=== PATIENT | male | born 1970 | race Caucasian/White ===

== ENCOUNTER 2018-09-28 15:50 | Inpatient (IN) | payer BC ==
[~2018-09-28] VITALS: Ht 188 cm; Wt 98.6 kg
--- NOTE | ~2018-09-28 | OP ---
PATIENT NAME: IZZY ESTRELLA MEDICAL RECORD: [id number] :68 LOCATION:[id number] ADMISSION DATE:09/28/18 SURGEON: MAICO FRAZIER MD DATE OF OPERATION: 09/29/2018 PREOPERATIVE DIAGNOSES: 1. Acute appendicitis with localized peritonitis. 2. Umbilical hernia. 3. Lupus. POSTOPERATIVE DIAGNOSES: 1. Acute appendicitis with localized peritonitis. 2. Umbilical hernia. 3. Lupus. PROCEDURE: 1. Laparoscopic appendectomy. 2. Umbilical hernia repair without mesh. SURGEON: Maico Frazier MD REPORT OF PROCEDURE: The patient's abdomen was prepped and draped in sterile fashion. A semicircular incision was made on the inferior aspect of the umbilicus. Electrocautery was used to dissect through the subcutaneous tissues. We came through the umbilical stalk and opened up into a fat-containing umbilical hernia. The hernia defect was about 1.5 cm in greatest diameter. This was penetrated bluntly and I entered the abdominal cavity. A 0 Vicryls were placed on the fascia bilaterally and at this point a 12-mm trocar was inserted into the abdominal cavity. After insufflation was obtained, then a 5-mm trocar was placed in the left lower quadrant and another was placed in the suprapubic region. The appendix was easily visualized. It was noted to be inflamed with no signs of gangrene or perforation. The appendix was attached to the lateral wall with a small film, which was taken down using electrocautery. We then made a window at the base of the appendix through the mesoappendix and transected the mesoappendix with a 45 white load Endo-CASTRO stapler. The appendix was then transected at its base using a 45 blue load Endo-CASTRO stapler. The appendix was placed into an Endo Catch bag. We irrigated out the right lower quadrant and could see there was an area of bleeding at the staple line, which was discontinued with electrocautery. At this point, the ports and insufflation were then removed and the appendix was taken out through the umbilicus. The umbilical fascia was closed with interrupted 0 Prolenes times 4 transversely. The umbilicus was then tacked down to the fascia using a single interrupted 3-0 Vicryl. The subcutaneous tissues were all irrigated out and then infused with 10 mL of 0.25% Marcaine with epinephrine. The skin incisions were closed with subcutaneous 5-0 Monocryl and dressed appropriately. COMPLICATIONS: None. CONDITION: Stable. ANESTHESIA: General endotracheal and local. BLOOD LOSS: Minimal. TRANSINT:[id number] Voice Confirmation ID: [id number] DOCUMENT ID: [id number] OPERATIVE REPORT [id number] SAMEER,MAICO KIRKPATRICK MD CC: [id number] DICTATION DATE: 09/29/18 1254 CHOKE SETTER: 09/29/18 1425 ADM IN [place] [id number] [place] [id number]
[2018-09-28 17:03] LABS: BASOPHILS 0.4 % (0-2); EOSINOPHILS 3.3 % (0-7); HEMATOCRIT 35.2 % (42.0-54.0); HEMOGLOBIN 10.8 g/dL (13.5-17.5); IMMATURE GRANULOCYTES 0.1 % (0-5); LYMPHOCYTES 22.3 % (15-50); MCH 24.5 pg (26.0-34.0); MCHC 30.7 g/dL (31.0-37.0); MCV 79.8 fL (80.0-100.0); MEAN PLATELET VOLUME 9.5 fL (7.4-10.4); MONOCYTES 9.7 % (2-11); NEUTROPHILS 64.2 % (40-80); PLATELET COUNT 398 10x3/uL (130-400); RBC 4.41 10x6/uL (4.20-6.10); RDW 16.4 % (11.5-14.5); WBC 7.6 10x3/uL (4.8-10.8)
[2018-09-28 17:18] LABS: ALBUMIN 3.1 g/dL (3.4-5.0); ALKALINE PHOSPHATASE 106 U/L (46-116); ALT (SGPT) 20 U/L (10-68); AMYLASE - SERUM 70 U/L (25-115); BILIRUBIN - TOTAL 0.21 mg/dL (0.2-1.3); CALC OSMOLALITY 277 mosm/kg (275-300); CALCIUM 8.9 mg/dL (8.5-10.1); CHLORIDE - SERUM 102 mmol/L (98-107); GLUCOSE 92 mg/dL (74-106); LIPASE 162 U/L (73-393); POTASSIUM - SERUM 4.2 mmol/L (3.5-5.1); PROTEIN - SERUM 8.7 g/dL (6.4-8.2); SODIUM 139 mmol/L (136-145); UREA NITROGEN 13 mg/dL (7-18); eGFR NON AFRICAN AMERICAN 84 mL/min (90-120)
[2018-09-28 17:38] LABS: APPEARANCE CLEAR (CLEAR); BILIRUBIN NEGATIVE (NEGATIVE); COLOR YELLOW (YELLOW); GLUCOSE NEGATIVE (NEGATIVE); KETONE SMALL mg/dL (NEGATIVE); NITRITE NEGATIVE (NEGATIVE); PROTEIN TRACE mg/dL (NEGATIVE); SPECIFIC GRAVITY 1.015 (1.005-1.020); UROBILINOGEN NORMAL (NORMAL)
--- NOTE | 2018-09-28 22:22 | NUR ---
PT'S IV ANTIBIOTIC MERREM FINISHED.
--- NOTE | 2018-09-28 23:00 | NUR ---
RECEIVED TO FLOOR FROM ER, ORIENTED TO ROOM, DENIES NEEDS, IV TO RAC NS @125, CALL LIGHT IN REACH, BED LOWEST POSITION, WILL CONTINUE TO MONITOR
[2018-09-28 23:47] VITALS: BP 148/82; BMI 27.9
[2018-09-29] VITALS: BP 148/82
[2018-09-29 04:00] VITALS: BP 138/84
[2018-09-29 07:05] LABS: INR 1.07 (0.85-1.17); PROTIME 13.4 SECONDS (11.6-15.0)
[2018-09-29 07:16] LABS: BASOPHILS 0.3 % (0-2); EOSINOPHILS 3.7 % (0-7); HEMATOCRIT 34.2 % (42.0-54.0); HEMOGLOBIN 10.5 g/dL (13.5-17.5); IMMATURE GRANULOCYTES 0.2 % (0-5); LYMPHOCYTES 28.3 % (15-50); MCH 24.5 pg (26.0-34.0); MCHC 30.7 g/dL (31.0-37.0); MCV 79.9 fL (80.0-100.0); MEAN PLATELET VOLUME 10.4 fL (7.4-10.4); MONOCYTES 11.7 % (2-11); NEUTROPHILS 55.8 % (40-80); PLATELET COUNT 377 10x3/uL (130-400); RBC 4.28 10x6/uL (4.20-6.10); RDW 16.6 % (11.5-14.5); WBC 6.2 10x3/uL (4.8-10.8)
[2018-09-29 07:25] LABS: CALC OSMOLALITY 274 mosm/kg (275-300); CALCIUM 8.4 mg/dL (8.5-10.1); CARBON DIOXIDE 25.4 mmol/L (21.0-32.0); CHLORIDE - SERUM 102 mmol/L (98-107); GLUCOSE 79 mg/dL (74-106); PHOSPHOROUS 3.1 mg/dL (2.5-4.9); POTASSIUM - SERUM 3.6 mmol/L (3.5-5.1); SODIUM 138 mmol/L (136-145); UREA NITROGEN 12 mg/dL (7-18); eGFR NON AFRICAN AMERICAN 84 mL/min (90-120)
[2018-09-29 09:02] VITALS: Ht 188 cm; Wt 98.6 kg
[2018-09-29 09:37] VITALS: BP 139/82
--- NOTE | 2018-09-29 10:19 | NUR ---
ALERT AND ORIENTED WITH CONSENT SIGNED AND PREOP MEDICATIONS ADMINISTERED. BS NOTED WOTH RLQ TENDERNESS ON PALPATION. IVF INFUSING AT PRESCRIBED RATE. DENEIS ANY PAIN OR DISCOMFORT AT TIS TIME AND ENCOURAGED TO USE CALL LIGHT FOR ASSIST.
--- NOTE | 2018-09-29 11:49 | NUR ---
PT. LEFT FOR PROCEDURE WITH ASSIST OF STAFF. STABLE AT TIME OF DEPARTURE.
[2018-09-29] MEDS ORDERED: HYDROCODON-ACE1 EA10 PO (12:48)
[2018-09-29 13:29] VITALS: BP 130/69
--- NOTE | 2018-09-29 15:14 | NUR ---
DISCHARGED TO HOME VIA POV OF FAMILY. VERBALIZED UNDERWTANDING OF DISCHARGE INSTRUCTIONS WITH S/L REMOVED AND VOIDING PRIOR TO DISCHARGE. AMBULATING WITH GAURDED GAIT WITH NO C/O NOTED AT THIS TIME. STABLE AT TIME OF DISCHARGE.
== END 2018-09-29 15:16 | disposition home or self-care (01) | DRG 343 ==
LOC: D.ER 15:50 → D.EDHOLD 20:45 → D.MS 22:30
PROVIDERS: Family Medicine; ADMIT Surgery; ATTEND Surgery
PROC: 0WQF4ZZ Repair Abdominal Wall, Percutaneous Endoscopic Approach (ICD-10-PCS; 2018-09-29)
PROC: 0DTJ4ZZ Resection of Appendix, Percutaneous Endoscopic Approach (ICD-10-PCS; principal; 2018-09-29 12:24)
DX: K35.30 Acute appendicitis with localized peritonitis, without perforation or gangrene (principal); K42.9 Umbilical hernia without obstruction or gangrene; M32.9 Systemic lupus erythematosus, unspecified

== ENCOUNTER → 2018-12-12 17:49 | Outpatient (CLI) | payer BC ==
[2018-09-29 09:02] VITALS: BMI 27.9
[~2018-12-12 17:49] MED LIST: HYDROCODON-ACE1 EA10 PO
[2018-12-12 19:16] LABS: PROTEIN - BODY FLUID 8.1 G/DL
[2018-12-12 19:44] LABS: MACROPHAGES BF 4 %; MESOTHELIALS BF 1 %; NEUT - BF 91 %
[2018-12-12 19:46] LABS: MACROPHAGES BF 28 %; MESOTHELIALS BF 3 %; NEUT - BF 63 %
== END | disposition home or self-care (01) ==
LOC: D.LABREF 17:49
PROVIDERS: ATTEND Clinical Nurse Specialist Family Health
DX: R22.42 Localized swelling, mass and lump, left lower limb (principal); M25.562 Pain in left knee; M25.561 Pain in right knee

== ENCOUNTER 2019-01-11 03:09 | Emergency (ER) | payer BC ==
[2019-01-11 03:15] VITALS: BMI 27.0
[2019-01-11] MEDS ORDERED: AUGMENTIN 875-11 TAB PO (05:33)
[2019-01-11 05:38] VITALS: BP 135/80
== END 2019-01-11 05:38 | disposition home or self-care (01) ==
LOC: D.ER 03:09
DX: J01.00 Acute maxillary sinusitis, unspecified (principal)

== ENCOUNTER 2019-10-31 17:18 | Emergency (ER) | payer BC ==
[~2019-10-31] VITALS: Ht 188 cm; Wt 100.0 kg
[~2019-10-31 17:18] MED LIST changes: +AUGMENTIN 875-11 TAB PO
[2019-10-31 17:25] VITALS: Ht 188 cm; Wt 100.0 kg
[2019-10-31 17:47] LABS: BASOPHILS 0.6 % (0-2); EOSINOPHILS 2.8 % (0-7); HEMATOCRIT 40.7 % (42.0-54.0); HEMOGLOBIN 13.1 g/dL (13.5-17.5); IMMATURE GRANULOCYTES 0.1 % (0-5); LYMPHOCYTES 29.7 % (15-50); MCH 29.7 pg (26.0-34.0); MCHC 32.2 g/dL (31.0-37.0); MCV 92.3 fL (80.0-100.0); MONOCYTES 12.5 % (2-11); NEUTROPHILS 54.3 % (40-80); RBC 4.41 10x6/uL (4.20-6.10); RDW 13.5 % (11.5-14.5); WBC 6.9 10x3/uL (4.8-10.8)
[2019-10-31 17:48] LABS: PLATELET COUNT 296 10x3/uL (130-400)
[2019-10-31 17:54] LABS: CALC OSMOLALITY 273 mosm/kg (275-300); CALCIUM 8.7 mg/dL (8.5-10.1); CARBON DIOXIDE 24.6 mmol/L (21.0-32.0); CHLORIDE - SERUM 101 mmol/L (98-107); CREATININE - SERUM 1.1 mg/dL (0.6-1.3); GLUCOSE 92 mg/dL (74-106); POTASSIUM - SERUM 3.8 mmol/L (3.5-5.1); SODIUM 136 mmol/L (136-145); UREA NITROGEN 17 mg/dL (7-18); eGFR NON AFRICAN AMERICAN 75 mL/min (90-120)
[2019-10-31 17:56] LABS: INR 0.93 (0.85-1.17); PROTIME 12.4 SECONDS (11.6-15.0)
[2019-10-31 18:10] LABS: ALBUMIN 3.8 g/dL (3.4-5.0); ALKALINE PHOSPHATASE 105 U/L (30-120); ALT (SGPT) 40 U/L (10-68); BILIRUBIN - TOTAL 0.36 mg/dL (0.2-1.3); CKMB 2.2 U/L (0.0-3.6); CREATINE KINASE 313 UL (21-232); MAGNESIUM - SERUM 1.7 mg/dL (1.8-2.4)
[2019-10-31 18:15] LABS: TROPONIN-I < 0.017 ng/mL (0.000-0.060)
[2019-10-31 19:20] VITALS: BP 143/80
== END 2019-10-31 19:18 | disposition home or self-care (01) ==
LOC: D.ER 17:18
PROVIDERS: Family Medicine
DX: R07.89 Other chest pain (principal); F41.9 Anxiety disorder, unspecified

== ENCOUNTER 2020-05-06 14:38 | Emergency (ER) | payer BC ==
[~2020-05-06] VITALS: Ht 188 cm; Wt 95.5 kg
[2020-05-06 15:08] VITALS: BP 126/88; Ht 188 cm; Wt 95.5 kg
[2020-05-06] MEDS ORDERED: COSENTYX (15:11)
== END 2020-05-06 17:29 | disposition home or self-care (01) ==
LOC: D.ER 14:38
DX: K22.2 Esophageal obstruction (principal); R13.10 Dysphagia, unspecified

== ENCOUNTER 2020-10-16 05:43 | Day surgery (SDC) | payer MEDICARE ==
[~2020-10-16] VITALS: Ht 188 cm; Wt 92.7 kg
[~2020-10-16 05:43] MED LIST changes: +COSENTYX; +PROTONIX FOR OR40 MG PT; +ULTRAM50 MG PO; +VALIUM10 MG PO
[2020-10-16 06:56] VITALS: BP 144/80; Ht 188 cm; Wt 92.7 kg
--- NOTE | 2020-10-16 09:48 | NUR ---
PROCEDURE COMPLETED. DILATED 24 TO 60 CITIZEN OF [place] AND [place] DILATION PERFORMED ALSO.
--- NOTE | 2020-10-16 11:11 | NUR ---
IV D/C'D WITH CANNULA INTACT, PRESSURE HELD AND DRSG PLACED. DISCHARGE INSTRUCTIONS GIVEN AND PT VERBALIZED AN UNDERSTANDING.
== END 2020-10-16 10:30 | disposition home or self-care (01) ==
LOC: D.OPS 05:43
PROVIDERS: ATTEND Surgery
DX: K22.2 Esophageal obstruction (principal); K21.9 Gastro-esophageal reflux disease without esophagitis

== ENCOUNTER 2020-11-12 14:43 | Day surgery (SDC) | payer BC ==
[~2020-11-12] VITALS: Ht 188 cm; Wt 95.5 kg
[2020-11-12] MEDS ORDERED: PROTONIX40 MG PO (15:06)
[2020-11-12 15:09] VITALS: Ht 188 cm; Wt 95.5 kg
--- NOTE | 2020-11-12 17:06 | NUR ---
DC INSTRUCTIONS GIVEN TO PT. STATES UNDERSTANDING. DC'D IV CATH FULLY INTACT. WILL DC SHORTLY.
--- NOTE | 2020-11-12 17:12 | NUR ---
PT LEFT UNIT VIA WC AT 1712
== END 2020-11-12 17:12 | disposition home or self-care (01) ==
LOC: D.OPS 14:43
PROVIDERS: ATTEND Surgery
DX: T18.128A Food in esophagus causing other injury, initial encounter (principal); K22.2 Esophageal obstruction; K21.9 Gastro-esophageal reflux disease without esophagitis

== ENCOUNTER 2020-12-24 11:07 | Day surgery (SDC) | payer MEDICARE ==
[~2020-12-24] VITALS: Ht 185.4 cm; Wt 95.5 kg
[~2020-12-24 11:07] MED LIST changes: +PROTONIX40 MG PO
[2020-12-24 12:21] VITALS: BP 129/91; Ht 185.4 cm; Wt 95.5 kg
--- NOTE | 2020-12-24 14:40 | NUR ---
DC TEACHING COMPLETE, PT VERBALIZED UNDERSTANDING 1450 NOTIFIED ANESTHESIA OF PT ELEVATED BP, TOLD TO GIVE PT 10 OF HYDRALAZINE, PT ASKED TO RETAKE HIS BP AFTER UNCROSSING HIS LEGS. BP WAS LOWERED, PT REQUESTED THAT THIS NURSE RE-INFORM ANESTHESIA; THIS WAS DONE AND OK'D TO NOT GIVE THE HYDRALIZINE. 1500 PIV DC'D WITH CATHETER INTACT, PT GETTING DRESSED 1520 PT DC'D TO POV WITH ALL BELONGINGS AND DC PACKET WITH FAMILY/FRIEND DRIVING.
== END 2020-12-24 15:20 | disposition home or self-care (01) ==
LOC: D.OPS 11:07
PROVIDERS: ATTEND Surgery
DX: K22.2 Esophageal obstruction (principal)

== ENCOUNTER 2021-01-07 08:43 | Observation (INO) | payer BC ==
[~2021-01-07] VITALS: Ht 185.4 cm; Wt 95.5 kg
[2021-01-07] MEDS ORDERED: UNISOM SLEEP AI25 MG PO (16:35)
[2021-01-07 16:40] VITALS: BP 136/88; Ht 185.4 cm; Wt 95.5 kg
--- NOTE | 2021-01-07 17:03 | NUR ---
I have reviewed this patient and I concur with the Shift Assessment completed by the Licensed Practical Nurse today this shift.
[2021-01-07 20:00] VITALS: BP 118/84
[2021-01-08] VITALS: BP 139/84
[2021-01-08 04:00] VITALS: BP 117/68
[2021-01-08] MEDS ORDERED: PROTONIX20 MG PO (08:35)
[2021-01-08 08:43] VITALS: BP 147/85
--- NOTE | 2021-01-08 08:50 | NUR ---
RETURN BACK TO FLOOR AT THIS TIME AWAKE AND ALERT. RESP EVEN AND UNLABORED WITH NO DISTRESS NOTED. CAN EXPRESS ALL NEEDS. NO C/O NOTED OR VOICED. C/L IN REACH AT BEDSIDE.
--- NOTE | 2021-01-08 10:46 | NUR ---
DC HOME AT THIS TIME. IV DC. NO C/O NOTED. STABLE CONDITION UPON DEPARTURE.
== END 2021-01-08 10:47 | disposition home or self-care (01) ==
LOC: D.RAD 08:43 → OBSVTIME 16:00 → D.MS 16:00
PROVIDERS: ADMIT Surgery; ATTEND Surgery
DX: K22.2 Esophageal obstruction (principal); T18.2XXA Foreign body in stomach, initial encounter; F41.9 Anxiety disorder, unspecified; K21.9 Gastro-esophageal reflux disease without esophagitis; I10 Essential (primary) hypertension